=== PATIENT | male | born 1985 | race Hispanic/Latino ===

== ENCOUNTER 2021-11-05 09:06 | Outpatient (CLI) | payer OTHER, SELFPAY ==
[2021-11-05 19:40] LABS: Alanine Aminotransferase 167 U/L (6-50); Albumin Level 4.6 g/dL (3.5-5.1); Alkaline Phosphatase 96 U/L (38-126); Aspartate Amino Transferase 94 U/L (17-59); Bilirubin,Total 0.6 mg/dL (0.2-1.3)
[2021-11-05 19:43] LABS: Prothrombin Time 12.5 Seconds (11.1-14.7)
[2021-11-05 20:56] LABS: Hepatitis B Surface Antigen Negative (Negative); Hepatitis C Virus Antibody Negative (Negative)
[2021-11-07 17:32] LABS: GGT 63 U/L (3-90)
== END 2021-11-05 09:07 | disposition home or self-care (01) ==
LOC: ANHGOSHLAB 09:10
PROVIDERS: PCP Internal Medicine; Visit Provider Internal Medicine
DX: R74.8 Abnormal levels of other serum enzymes (principal)
CPT/HCPCS: 36415; 80076; 82728; 82977; 85610; 86803; 87340

== ENCOUNTER → 2021-11-23 11:03 | Outpatient (CLI) | payer OTHER, SELFPAY ==
--- NOTE | ~2021-11-23 | US_ITS ---
US abdomen limited INDICATION: Elevated liver enzymes PROCEDURE: Realtime right upper abdominal ultrasound. COMPARISON: No prior studies for comparison. FINDINGS: The pancreas is normal without focal mass or pancreatic ductal dilation. Liver echotexture is increased, consistent with fatty infiltration. There is normal directional flow in the portal ve in. The gallbladder is normal without stones, gallbladder wall thickening or pericholecystic fluid. Comm on bile duct measures 5 mm. No sonographic Guzman's sign. Incidental note is made of an echogenic fo ci in the right kidney, possibly nonobstructing renal stone. IMPRESSION: 1: Hepatic steatosis. 2: Possible nonobstructing left nephrolithiasis. Reviewed, dictated and finalized at location A.
== END ==
LOC: EXPGOSHRAD 11:04
PROVIDERS: PCP Internal Medicine; Visit Provider Internal Medicine
DX: R74.8 Abnormal levels of other serum enzymes (principal)
CPT/HCPCS: 76705

== ENCOUNTER 2021-12-10 07:33 | Outpatient (CLI) | payer OTHER, SELFPAY ==
--- NOTE | 2022-01-04 09:33 | WPDHOMESLEEP ---
Sleep Study - Home Unattended Date of Study: 12/10/21 Ordering Provider: Justice Mccarthy DO Interpreting Provider: Marcela Pompa MD Home Sleep Study Type: Watch PAT Height: 1.68 m Weight: 104.326 kg Body Mass Index: 37.1 Neck Circumference (inches): 17.75 [place]: 16 Reason for Sleep Study Excessive daytime sleepiness Sleep History Sherwin Baez is a 36-year-old man with hypertension who says that he feels tired all the time. He complains of snoring loudly. He does not awaken from sleep feeling short of breath. He occasionally awakens at night with heartburn, belching or coughing. He constantly sweats excessively at night. He occasionally falls asleep during the day, not involuntarily never while driving. He does not have loss of muscle tone with strong emotion. He does not feel paralyzed on walking waking or falling asleep and does not have vivid dreamlike scenes on waking or falling asleep. He does not have nightmares. He never remembers his dreams. He has rare anxiety. He does not notice parts of his body jerking, he does not kick at night and does not have crawling and aching feelings in his legs. He does not grind his teeth at night. He rarely wakes up feeling stiff in the morning with sore achy muscles. Normal bedtime 9:00 p.m. falling asleep within half a moment, wakes once at night to urinate and returns to bed immediately. He wakes the morning at 3:30 a.m.. On weekends he stays awake later, 11:00 p.m. and wakes at 9:00 a.m.. He takes naps in the afternoon or evening. A short nap may be refreshing. He is drowsy in the morning for an hour after waking. He rarely has a morning headache. He only occasionally awakens feeling refreshed. He reports a 40 lb weight gain in the last year. Habits: caffeine 1 per day. Alcohol socially, on the weekends. No recreational drugs. [facility] Past Medical History Medical History Hypertension Surgical History Surgical History H/O hernia repair 2010 Social History Social History Smoking status: Current some day smoker Tobacco type: cigars Alcohol intake: current Substance use: never Substance use type: does not use Medications Home Medications Medication Instructions Recorded Confirmed Type losartan 50 mg tablet 50 mg PO DAILY #30 tabs 11/05/21 11/30/21 Rx Sleep Procedure The sleep study was completed using IndexT a technically adequate device with seven channels: peripheral arterial tone, actigraphy, body position, snore, respiratory movement, pulse oximetry, sleep staging, and heart rate. Prior to using the device, the patient received verbal and written instructions for its application and was provided with the help desk phone number for additional telephonic instruction with 24-hour availability of qualified personnel to answer questions. Sleep Architecture Recording duration for 5 hours 55 minutes. Sleep duration 5 hours. Sleep latency prolonged 43 minutes. REM latency 117 minutes. Sleep architecture showed 25% deep sleep 52% light sleep and 23% stage REM. The patient had a sleep efficiency of 85%. There were 5 episodes of wake throughout the night. Respiratory Analysis The apnea-hypopnea index is 35.4. During REM the AHI is 65.7. The central apnea-hypopnea index is 7.3 associated with 31 events. There is no evidence of Benny-Alejandre respirations. Oximetry Data Lowest desaturation 66%, average saturation 93%. There were 143 desaturations. Eight desaturations were greater than 20% drop from baseline. The patient spent 26.4 minutes below 88%, 8.8% of the study. Snoring Profile Snoring was present, mean intensity 44 decibels. The patient snored above 45 decibels for 92.6 minutes, 30.9% of the night. Cardiac Profile Minimum pulse 47, maximum pulse 123.
[2022-01-04 09:42] VITALS: BMI 37.1
== END 2021-12-11 14:42 | disposition home or self-care (01) ==
LOC: ANHCSM 07:35
PROVIDERS: PCP Internal Medicine; Visit Provider Internal Medicine
DX: G47.30 Sleep apnea, unspecified (principal); I10 Essential (primary) hypertension; G47.33 Obstructive sleep apnea (adult) (pediatric)
CPT/HCPCS: 95800

== ENCOUNTER 2022-02-15 13:29 | Outpatient (CLI) | payer OTHER, SELFPAY ==
--- NOTE | 2022-02-15 13:42 | ECHO_ITS ---
Patient Info Name: Sherwin Baez Age: 36 years : 1985 Gender: Male Ht: 66 in Wt: 230 lbs BSA: 2.25 m2 HR: 91 bpm BP: 153 / 95 mmHg Technical Quality: Good Exam Date: 02/15/2022 1:48 PM Exam Location: [facility] Patient Status: Outpatient Admit Date: 02/15/2022 Staff Ordering Physician: Justice Mccarthy DO [employer] Installer: Zahra Mercado RCS Attending Provider: Justice Mccarthy DO Referring Physician: Fabio HARPER; Exam Type: CA echo doppler color flow Study Info Indications - OBSTRUCTIVE SLEEP APNEA Complete two-dimensional, color flow and Doppler transthoracic echocardiogram is performed. Summary 1. Complete two-dimensional, color flow and Doppler transthoracic echocardiogram is performed. 2. Left ventricular chamber dimension is normal. 3. Left ventricular systolic function is normal, estimated at 65-70%. 4. The left ventricular diastolic function is normal. 5. E/e' 10 is mildly elevated. 6. There is trace mitral valve regurgitation. 7. There is trace tricuspid valve regurgitation. 8. No pulmonary hypertension, estimated pulmonary arterial systolic pressure is 29 mmHg. Left Ventricle E/e' 10 is mildly elevated. Left ventricular chamber dimension is normal. Left ventricular systolic function is normal, estimated at 65-70%. The left ventricular diastolic function is normal. Right Ventricle Right ventricular chamber dimension is normal. Right ventricular systolic function is normal. Left Atria Left atrial chamber dimension is normal. Right Atria Right atrial chamber dimension is normal. Aortic Valve The aortic valve is trileaflet. There is no aortic valve stenosis. There is no aortic valve regurgitation. Pulmonic Valve There is no pulmonic regurgitation. Mitral Valve There is no mitral valve stenosis. There is trace mitral valve regurgitation. Tricuspid Valve There is trace tricuspid valve regurgitation. No pulmonary hypertension, estimated pulmonary arterial systolic pressure is 29 mmHg. Pericardium/Pleural There is no pericardial effusion. Inferior Vena Cava Normal inferior vena cava with >50% collapse upon inspiration consistent with normal right atrial pressure, 5 mmHg. Aorta The aortic root size at the sinus of Valsalva is normal. Left Ventricular Outflow Tract Name Value Normal LVOT 2D LVOT Diameter 2.1 cm LVOT Doppler LVOT Peak Gradient 4 mmHg LVOT Mean Gradient 2 mmHg LVOT VTI 17 cm LVOT VTI/AV VTI Ratio 0.8 LVOT Stroke Volume 58 ml LVOT CO 14.9 l/min LVOT CI 6.6 l/min/m2 Pulmonic Valve Name Value Normal PV Doppler PV Peak Gradient
== END 2022-02-15 13:30 | disposition home or self-care (01) ==
LOC: ANHCARD 13:32
PROVIDERS: PCP Internal Medicine; Visit Provider Internal Medicine
DX: G47.33 Obstructive sleep apnea (adult) (pediatric) (principal); I10 Essential (primary) hypertension
CPT/HCPCS: 93306

== ENCOUNTER 2022-02-24 07:52 | Outpatient (CLI) | payer OTHER, SELFPAY ==
--- NOTE | 2022-03-18 14:02 | WPDSLEEPSTUD ---
Sleep Study Date of Study: 02/24/22 Ordering Provider: Justice Mccarthy DO Interpreting Physician: Marcela Pompa MD Sleep Study Type: BiPAP Titration Height: 1.96 m Weight: 103.873 kg Body Mass Index: 27.1 Neck Circumference (inches): 17.75 [place]: 12 Reason for Sleep Study * 12/10/2021 home sleep test with walk which pat showing severe obstructive sleep apnea, AHI 35.4, central AHI 7.3, desaturation to 66%. He returns for a PAP titration. * 02/15/2022- echo : ventricular systolic function is normal, estimated at 65-70%. Sleep History Sherwni Baez is a 36-year-old man with hypertension?who says that he feels tired all the time.? He complains of snoring loudly.? He does not awaken from sleep feeling short of breath.? He occasionally awakens at night with heartburn, belching or coughing.? He constantly sweats excessively at night.? He occasionally falls asleep during the day, not involuntarily never while driving.? He does not have loss of muscle tone with strong emotion.? He does not feel paralyzed on walking waking or falling asleep and does not have vivid dreamlike scenes on waking or falling asleep.? He does not have nightmares.? He never remembers his dreams.? He has rare anxiety.? He does not notice parts of his body jerking, he does not kick at night and does not have crawling and aching feelings in his legs.? He does not grind his teeth at night.? He rarely wakes up feeling stiff in the morning with sore achy muscles. Normal bedtime 9:00 p.m. falling asleep within half a moment, wakes once at night to urinate and returns to bed immediately.? He wakes the morning at 3:30 a.m..? On weekends he stays awake later, 11:00 p.m. and wakes at 9:00 a.m..? He takes naps in the afternoon or evening.? A short nap may be refreshing.? He is drowsy in the morning for an hour after waking.? ? He rarely has a morning headache.? He only occasionally awakens feeling refreshed.? He reports a 40 lb weight gain in the last year. Habits:? caffeine 1 per day.? Alcohol socially, on the weekends.? No recreational drugs. [facility] Past Medical History Medical History (Updated 03/18/22 @ 14:05 by Marcela Pompa MD) Hypertension Obstructive sleep apnea Surgical History Surgical History H/O hernia repair 2010 Social History Social History Smoking status: Current some day smoker Tobacco type: cigars Alcohol intake: current Substance use: never Substance use type: does not use Medications Home Medications Medication Instructions Recorded Confirmed Type losartan 50 mg tablet 50 mg PO DAILY #30 tabs 03/15/22 Rx Sleep Procedure This test was performed using the [employer] multiple channel system including EOG, EEG, submental EMG, EKG, nasal and oral airflow using thermistors and nasal pressure sensors, chest and abdominal belts for body position data, and pulse oximetry. Video monitoring was also performed. The study was scored using [facility] guidelines. The patient was started on CPAP using a large [employer]Med AirFit N20 nasal mask with humidity. This patient did not appear to take a sleep aid. There was no mention of a sleep aid in the tech's notes. The patient started at CPAP a pressure of 7 with 3 cm EPR, titrated to 9, 11,12, 13, 14,and 16 cm CPAP all settings with 3 cm EPR, switching to BiPAP for patient comfort 17/12, 18/12, 19/13, 20/14, 21/15, 21/16. During BiPAP, the patient had a long stretch of supine sleep with several REM cycles. I am recommending BiPAP 16/12 as an optimal pressure. THe patient had treatment-emergent centrals throughout the study. Sleep Architecture Recording duration for 84.8 minutes. Total sleep duration 451 minutes. Sleep efficiency 93% excellent. Sleep latency is short, 3 minutes. REM latency 46 minutes, also short. The patient had 30.5 minutes of wake after sleep onset. Sleep
[2022-03-18 14:36] VITALS: BMI 27.1
== END 2022-02-25 05:58 | disposition home or self-care (01) ==
PROVIDERS: PCP Internal Medicine; Visit Provider Internal Medicine
DX: G47.33 Obstructive sleep apnea (adult) (pediatric) (principal)
CPT/HCPCS: 95811